=== PATIENT | male | born 1955 | race Two or more races ===

== ENCOUNTER 2018-04-09 22:33 | Emergency (ER) | payer OTHER ==
[2018-04-09] MEDS: HYDROCODONE/APAP (5/325) TAB PO (23:33)
== END 2018-04-10 01:20 | disposition home or self-care (01) ==
LOC: FTE 22:33
DX: M54.5 Low back pain (principal); M54.2 Cervicalgia; I10 Essential (primary) hypertension; E11.9 Type 2 diabetes mellitus without complications; Z79.01 Long term (current) use of anticoagulants; Z79.84 Long term (current) use of oral hypoglycemic drugs; Z87.891 Personal history of nicotine dependence
CPT/HCPCS: 72125; 72131; 99284-25